=== PATIENT | male | born 1995 | race Asian ===

== ENCOUNTER 2019-05-26 23:08 | Emergency (ER) | payer SELFPAY ==
[~2019-05-26] VITALS: Ht 172.7 cm; Wt 73.0 kg
[2019-05-26 23:49] VITALS: BP 148/85
== END 2019-05-27 02:22 | disposition home or self-care (01) ==
LOC: ER 23:12
DX: S62.344A Nondisplaced fracture of base of fourth metacarpal bone, right hand, initial encounter for closed fracture (principal); Z88.0 Allergy status to penicillin; W22.8XXA Striking against or struck by other objects, initial encounter; Y93.89 Activity, other specified; Y99.8 Other external cause status; Y92.89 Other specified places as the place of occurrence of the external cause
CPT/HCPCS: 29125; 73130

== ENCOUNTER 2021-03-06 16:08 | Emergency (ER) | payer MEDICAID ==
[~2021-03-06] VITALS: Ht 175.3 cm; Wt 68.5 kg
[2021-03-06 16:15] VITALS: BP 133/79
== END 2021-03-06 22:50 | disposition left against medical advice (07) ==
LOC: ER 16:08
DX: S01.511A Laceration without foreign body of lip, initial encounter (principal); Z53.21 Procedure and treatment not carried out due to patient leaving prior to being seen by health care provider; W21.03XA Struck by baseball, initial encounter; Y93.64 Activity, baseball; Y92.89 Other specified places as the place of occurrence of the external cause; Y99.8 Other external cause status